=== PATIENT | female | born 1980 | race Caucasian/White ===

== ENCOUNTER → 2023-10-28 08:15 | Outpatient (REF) | payer BC, SELFPAY | LOC: HWWDC 08:15 | PROVIDERS: ATTENDING PHYSICIAN Obstetrics & Gynecology; FAMILY PHYSICIAN Family Medicine | DX: Z12.31 Encounter for screening mammogram for malignant neoplasm of breast (principal) | CPT/HCPCS: 77063; 77067 ==

== ENCOUNTER → 2024-07-10 08:46 | Outpatient (REF) | payer BC, SELFPAY | LOC: WDC 08:46 | PROVIDERS: ATTENDING PHYSICIAN Advanced Practice Midwife | DX: N63.20 Unspecified lump in the left breast, unspecified quadrant (principal); N63.23 Unspecified lump in the left breast, lower outer quadrant | CPT/HCPCS: 76642; 77061; 77065 ==

== ENCOUNTER → 2024-12-07 08:51 | Outpatient (REF) | payer BC, SELFPAY | LOC: HWWDC 08:51 | PROVIDERS: ATTENDING PHYSICIAN Obstetrics & Gynecology; FAMILY PHYSICIAN Family Medicine | DX: Z12.31 Encounter for screening mammogram for malignant neoplasm of breast (principal) | CPT/HCPCS: 77063; 77067 ==